=== PATIENT | male | born 1980 | race Caucasian/White ===

== ENCOUNTER → 2020-11-15 | Outpatient (CLI) | payer OTHER ==
--- NOTE | 2020-11-15 15:32 | RAD ---
Examination: 2 views of the lumbar spine HISTORY: History of back pain COMPARISON: None available FINDINGS: The lumbar vertebral body heights are maintained. No evidence of listhesis. The facets are well align ed. IMPRESSION: 1. No acute osseous findings. Electronically signed by: Ruperto Chapman MD (11/15/2020 3:29 PM) [id number]
== END ==
LOC: RAD 13:45
PROVIDERS: ATTEND Nurse Practitioner Family
DX: M54.5 Low back pain (principal)
CPT/HCPCS: 72100